=== PATIENT | male | born 1975 | race Caucasian/White ===

== ENCOUNTER → 2016-11-18 | Outpatient (CLI) | payer BC ==
--- NOTE | 2016-11-18 23:05 | MR ---
EXAMINATION TYPE: MR knee RT wo con DATE OF EXAM: 11/18/2016 9:23 PM COMPARISON: NONE HISTORY: RT KNEE PAIN TECHNIQUE: Multiplanar, multisequence imaging of the knee is performed without IV contrast. FINDINGS: There is a vertical defect through the posterior horn of the medial meniscus. There is a mild to mode rate knee joint effusion. The anterior and posterior cruciate ligaments are intact. The collateral li gaments are intact. There is no evidence for fracture. I see no bony destructive process. The patella is intact. IMPRESSION: There is a vertical tear of the posterior horn of the medial meniscus. No evidence of ligamentous tea r. Moderate knee joint effusion. No fracture seen.
== END | disposition home or self-care (01) ==
LOC: RADMRIMAIN 20:53
PROVIDERS: ATTEND Orthopaedic Surgery
DX: S83.241A Other tear of medial meniscus, current injury, right knee, initial encounter (principal)

== ENCOUNTER → 2017-01-12 | Outpatient (CLI) | payer BC ==
[2017-01-12 12:08] LABS: Basophils # (A) 0.1 k/uL (0-0.2); Basophils % (A) 2 %; CH 30.4; CHCM 34.6; Eosinophils # (A) 0.3 k/uL (0-0.7); Eosinophils % (A) 6 %; HGB 16.9 gm/dL (13.0-17.5); Luc # (Auto) 0.22; Luc % (Auto) 4; Lymphocytes % (A) 32 %; MCH 29.7 pg (25.0-35.0); MCHC 33.7 g/dL (31.0-37.0); MCV 88.2 fL (80.0-100.0); Mean Platelet Volume 7.4; Monocytes # (A) 0.3 k/uL (0-1.0); Monocytes % (A) 4 %; Neutrophils # (A) 3.3 k/uL (1.3-7.7); Neutrophils % (A) 53 %; RBC 5.68 m/uL (4.30-5.90); RDW 13.2 % (11.5-15.5); WBC 6.2 k/uL (3.8-10.6); WBC (Perox) 6.38
[2017-01-12 12:32] LABS: Potassium 4.6 mmol/L (3.5-5.1)
== END | disposition home or self-care (01) ==
LOC: LABPAT 11:52
PROVIDERS: ATTEND Orthopaedic Surgery
DX: Z01.818 Encounter for other preprocedural examination (principal); M23.91 Unspecified internal derangement of right knee
CPT/HCPCS: 80051; 85025

== ENCOUNTER 2017-01-19 06:46 | Day surgery (SDC) | payer BC ==
[2017-01-17 13:53] VITALS: BMI 26.4
--- NOTE | 2017-01-18 16:01 | HP ---
DATE OF ADMISSION: Jed Leija is a 41-year-old patient seen with progressive right knee pain. After having treatment options discussed, he elected to proceed with right knee arthroscopy. Consent was obtained. His past medical history is noncontributory. Past surgical history is left knee arthroscopy with ACL reconstruction. Daily medications: Ibuprofen as needed. ALLERGIES: None. SOCIAL HISTORY: Patient denies tobacco use. Physical evaluation of right knee: Range of motion 0 to 120 degrees, tenderness medial joint line. Positive medial Pamela's. Ligaments are stable. Hip rotation without pain. Distal neurovascular exam intact. Radiographs of the right knee revealed mild osteoarthritis. An MRI of the right knee revealed medial meniscal tear. IMPRESSION: Internal derangement of right knee with medial meniscal tear. PLAN: Right knee arthroscopy with partial meniscectomy and debridement.
[~2017-01-19 06:46] MED LIST: DEXAMETHASONE SOD PHOSPHATE 10 MG/ML 1 ML VIAL IV ONE; HYDROmorphone 1 MG/ML 1 ML SYRINGE IVP PRN; LACTATED RINGERS 1,000 ML IV SCH; LIDOCAINE 1% 20 ML VIAL (10MG/ML) FOR IV START INTRADERMA PRN; MIDAZOLAM 2 MG/2 ML VIAL IV PRN; ONDANSETRON 4 MG/2 ML VIAL IVP ONE; SCOPOLAMINE 1.5MG/72HR PATCH TRANSDERM ONE; ceFAZolin 2 GM in SODIUM CHLORIDE 0.9% 100 ML IVPB ONE
[2017-01-19] MEDS ORDERED: fentaNYL (PF) 50 MCG/ML 2 ML AMP ONE (07:27)
[2017-01-19] MEDS ORDERED: MIDAZOLAM 2 MG/2 ML VIAL ONE ×2 (07:27)
[2017-01-19] MEDS ORDERED: BUPIVACAIN-EPI 0.25%-1:200,000 30 ML VIAL INTRAARTIC ONE ×2 (07:43→08:09)
[2017-01-19] MEDS ORDERED: LACTATED RINGERS 1,000 ML IV ONE (07:53)
[2017-01-19 08:23] VITALS: TEMP 97.4
--- NOTE | 2017-01-19 08:29 | P.OP ---
Date of Procedure: 01/19/17 Preoperative Diagnosis: Internal derangement right knee Postoperative Diagnosis: 1. Tear medial and lateral meniscus right knee 2. Grade 1/2 chondromalacia patella right knee 3. Reactive synovitis medial and suprapatellar compartments right knee Procedure(s) Performed: 1. Arthroscopic partial medial and lateral meniscectomy right knee 2. Arthroscopic chondroplasty patella right knee 3. Arthroscopic partial synovectomy medial and suprapatellar compartments right knee Anesthesia: local, spinal Surgeon: Danilo Lozano Estimated Blood Loss (ml): 10 Pathology: none sent Condition: stable Disposition: PACU Indications for Procedure: 41-year-old patient seen with progressive right knee pain. After having treatment options discussed, he elected to proceed with right knee arthroscopy. Operative Findings: see description of procedure Description of Procedure: Patient was taken to the operative suite. Patient underwent a spinal anesthetic by the department of anesthesia. Patient was given preoperative antibiotics. The right lower extremity was placed in a well-padded arthroscopic leg finch. The right leg was prepped and draped in the normal sterile orthopedic fashion. A lateral parapatellar and suprapatellar incision was made. Trochars were inserted. Arthroscopy was initiated. Suprapatellar pouch revealed thick reactive synovitis. The patellofemoral joint appeared to articulate congruently. There was grade 1/2 chondromalacia with small osteochondral tears present. This involved the medial facet.. The scope was guided into the medial gutter. No loose bodies or plica were identified. The scope was then guided into the medial compartment. A medial parapatellar incision was made. Trocar inserted followed by probe. There was a complex tear involving the posterior horn of the medial meniscus which did extend into the midbody. There were grade 1 chondromalacia changes of the medial femoral condyle and tibial plateau but no osteochondral tears were present. There was some reactive synovitis anteriorly. There were no loose bodies. A partial medial meniscectomy was performed down to stable tissue. I performed a partial synovectomy. The residual meniscus was probed and found to be stable. Scope and probe were then guided into the intercondylar notch. Cruciates were identified, probed and found to be stable. The scope and probe were then guided into lateral compartment. Was a small superficial tear in the posterior medial corner of the lateral meniscus. The remainder of the lateral compartment was unremarkable. A partial lateral meniscectomy was performed on a stable tissue. The scope was in guided back into the suprapatellar compartment. I introduced a motorized shaver into the super patellar compartment. I debrided some piecemeal fragments of meniscus I encountered. I performed a chondroplasty patella gained down to stable osteochondral tissue. Partial synovectomy was performed. The shaver was removed. We took more look around the entire knee, no residual debris. Instruments were now removed from the joint. The joint was infiltrated with .25% Marcaine. Steri-Strips were applied to the portal sites. Sterile dressings were applied. The patient was placed into a JEFF hose. No tourniquet was utilized. The patient was awakened, transferred to a bed and taken to recovery stable satisfactory condition.
[2017-01-19] MEDS ORDERED: KETOROLAC 30 MG/ML 1 ML VIAL IVP STA (08:59)
[2017-01-19 09:35] VITALS: RESP 18
[2017-01-19 10:18] VITALS: BP 116/71; PULSE 61
== END 2017-01-19 11:18 | disposition home or self-care (01) ==
LOC: OR 06:46
PROVIDERS: ATTEND Orthopaedic Surgery
DX: S83.241A Other tear of medial meniscus, current injury, right knee, initial encounter (principal); S83.281A Other tear of lateral meniscus, current injury, right knee, initial encounter; X58.XXXA Exposure to other specified factors, initial encounter; M22.41 Chondromalacia patellae, right knee; M65.861 Other synovitis and tenosynovitis, right lower leg; M94.261 Chondromalacia, right knee; M23.91 Unspecified internal derangement of right knee; M17.11 Unilateral primary osteoarthritis, right knee; Z79.1 Long term (current) use of non-steroidal anti-inflammatories (NSAID)
CPT/HCPCS: 29880; J2250; J0690; J2405; J3010; J1885

== ENCOUNTER 2017-07-14 17:48 | Emergency (ER) | payer BC ==
[2017-07-14 17:53] VITALS: BP 142/85; PULSE 67; RESP 18; TEMP 97.1
[2017-07-14] MEDS ORDERED: DIPH,PERTUS(ACELL)TETVAC-LF 0.5 ML VIAL IM ONE (18:00)
--- NOTE | 2017-07-14 18:09 | ED ---
General Adult HPI - General Chief complaint: Wound/Laceration Stated complaint: Finger Laceration Time Seen by Provider: 07/14/17 17:56 Source: patient, RN notes reviewed Mode of arrival: ambulatory Limitations: no limitations - History of Present Illness Initial comments: 42 yo male presents to the ER with a chief complaint of left index finger laceration as well as left middle finger laceration by a elda borges today. Eyes any pain. He states his range of motion of the finger. He states that he just noticed the cut so he thought that he should be evaluated. Patient denies any other symptoms at this time.Patient denies any recent fever, chills, shortness of breath, chest pain, back pain, abdominal pain, nausea vomiting, numbness or tingling, dysuria or hematuria, constipation or diarrhea, headaches or visual changes, or any other current symptoms. - Related Data Previous Rx's Medication Instructions Recorded HYDROcodone/APAP 7.5-325MG [[place] 1 each PO Q6HR PRN #30 tab 01/19/17 7.5] Cephalexin [Keflex] 500 mg PO Q6HR #40 cap 07/14/17 Allergies Allergy/AdvReac Type Severity Reaction Status Date / Time No Known Allergies Allergy Verified 07/14/17 17:53 Review of Systems ROS Statement: Those systems with pertinent positive or pertinent negative responses have been documented in the HPI. ROS Other: All systems not noted in ROS Statement are negative. Past Medical History Past Medical History: No Reported History History of Any Multi-Drug Resistant Organisms: None Reported Past Surgical History: Orthopedic Surgery Additional Past Surgical History / Comment(s): BILAT KNEE SX Past Anesthesia/Blood Transfusion Reactions: No Reported Reaction Past Psychological History: No Psychological Hx Reported Smoking Status: Never smoker Past Alcohol Use History: None Reported Past Drug Use History: None Reported - Past Family History Mother Family Medical History: No Reported History General Exam - General Exam Comments Initial Comments: General: The patient is awake and alert, in no distress, and does not appear acutely ill. Neck: The neck is supple, there is no tenderness or JVD. Cardiovascular: There is a regular rate and rhythm. No murmur, rub or gallop is appreciated. Respiratory: Lungs are clear to auscultation, respirations are non-labored, breath sounds are equal. No wheezes, stridor, rales, or rhonchi. Musculoskeletal: Sensation intact with 2+ pulses of left upper x-ray. Fund motion of the left hand. Patient has 5 out of 5 muscle strength testing throughout. There is appear to be too similar laceration to the tip of the left index finger that does go through the nail as well as a 1 mL laceration to the distal aspect of the left middle finger. Neurological: CN II-XII intact, There are no obvious motor or sensory deficits. Coordination appears grossly intact. Speech is normal. Skin: Skin is warm and dry and no rashes or lesions are noted. Psychiatric: Normal mood and affect. Limitations: no limitations Course Vital Signs 07/14/17 17:50 Temperature 97.1 F L Pulse Rate 67 Respiratory 18 Rate Blood Pressure 142/85 O2 Sat by Pulse 100 Oximetry Procedures - Procedures Initial comment: The skin was anesthetized with 1% lidocaine. The laceration was then cleansed with Betadine and irrigated with normal saline. The wound was inspected, and there was no evidence of injury to deep structures. No foreign body was noted in the wound. A total of 2 skin sutures were placed utilizing 5-0 nylon to a 1 cm laceration to the distal aspect of the left middle finger. The skin was anesthetized with 1% lidocaine. The laceration was then cleansed with Betadine and irrigated with normal saline. The wound was inspected, and there was no evidence of injury to deep structures. No foreign body was noted in the wound. A total of 4 skin sutures were placed utilizing 5-0 nylon to 4 cm laceration to the distal aspect of the left index finger. - Orthopedic Splinting/Casting Injury #1 Side: left Upper Extremity Injury Location: finger Upper Extremity Immobilizer: aluminum form splint Medical Decision Making - Medical Decision Making 42-year-old male presents for left finger laceration. This does go to the nail and most likely is injury to the nailbed. We did discuss that we would remove the nail and fixes 30 mL now has a stone. He states that 6 everything except for the nail injury. At this time we will respect patient specialist. Patient did discuss care follow-up return parameters all his questions. He stated the Alonso is given plan. All questions have been answered. He will be discharged. Disposition Clinical Impression: Laceration of finger of left hand, Open fracture of phalanx of left index finger Disposition: HOME SELF-CARE Condition: Stable Instructions: Laceration (ED), Finger Fracture (ED) Additional Instructions: Please use medication as discussed. Please follow up with family doctor if symptoms have not improved over the next two days. Please return to the emergency room if your symptoms increase or worsen or for any other concerns. Prescriptions: Cephalexin [Keflex] 500 mg PO Q6HR #40 cap Referrals: Aditya Long DO [Doctor of Osteopathic Medicine] - 1-2 days Time of Disposition: 18:49
--- NOTE | 2017-07-14 18:21 | XR ---
EXAMINATION TYPE: XR finger LT DATE OF EXAM: 07/14/2017 COMPARISON: NONE HISTORY: Laceration TECHNIQUE: 3 views FINDINGS: There is slight deformity of the tuft of the distal phalanx of index finger suspicious for nondisplaced tuft fracture. There is no dislocation. There is no sign of a foreign body. IMPRESSION: Nondisplaced tuft fracture.
[2017-07-14] MEDS ORDERED: ceFAZolin 1,000 MG VIAL IM STA (18:24)
== END 2017-07-14 19:04 | disposition home or self-care (01) ==
LOC: EC 17:48
DX: S62.641B Nondisplaced fracture of proximal phalanx of left index finger, initial encounter for open fracture (principal); S61.213A Laceration without foreign body of left middle finger without damage to nail, initial encounter; Z23 Encounter for immunization; W29.3XXA Contact with powered garden and outdoor hand tools and machinery, initial encounter; Y93.H2 Activity, gardening and landscaping
CPT/HCPCS: 73140; 90715; 99283; 12002; 96372; 90471; J0690

== ENCOUNTER → 2022-06-23 | Outpatient (CLI) | payer BC ==
[2022-06-23 11:19] LABS: Basophils # (A) 0.06 X 10*3/uL (0.00-0.10); Basophils % (A) 0.9 %; Eosinophils # (A) 0.29 X 10*3/uL (0.04-0.35); Eosinophils % (A) 4.3 %; HCT 46.1 % (39.6-50.0); HGB 16.1 g/dL (13.0-17.0); Immature Grans, Automated 0.3 %; MCH 29.3 pg (27.0-32.0); MCHC 34.9 g/dL (32.0-37.0); MCV 83.8 fL (80.0-97.0); Mean Platelet Volume 10.1 fL (9.5-12.2); Monocytes # (A) 0.45 X 10*3/uL (0.20-1.00); Monocytes % (A) 6.7 %; NRBC Per 100 WBC 0 /100 WBCS (0.0-0.0); Neutrophils # (A) 3.85 X 10*3/uL (1.80-7.70); Neutrophils % (A) 57.8 %; Platelet Count 262 X 10*3/uL (140-440); RDW 12.4 % (11.5-14.5); WBC 6.67 X 10*3/uL (4.50-10.00)
[2022-06-23 11:21] LABS: African American GFR (CKD) 81.8 (60.0-200.0); Anion Gap 11.2 mmol/L (10.00-18.00); Blood Urea Nitrogen 19.6 mg/dL (9.0-27.0); Carbon Dioxide 24.8 mmol/L (20.0-27.5); Non-African American GFR(CKD) 70.6 (60.0-200.0); Potassium 4.1 mmol/L (3.5-5.5)
== END | disposition home or self-care (01) ==
LOC: LABPAT 07:42
PROVIDERS: ATTEND Orthopaedic Surgery
DX: Z01.812 Encounter for preprocedural laboratory examination (principal); M23.92 Unspecified internal derangement of left knee
CPT/HCPCS: 80051; 82565; 84520; 85025

== ENCOUNTER 2022-07-08 12:01 | Day surgery (SDC) | payer BC ==
[2022-07-07 08:05] VITALS: BMI 27.8
--- NOTE | 2022-07-08 05:32 | HP ---
HISTORY AND PHYSICAL DATE OF SURGERY: 07/08/2022 HISTORY OF PRESENT ILLNESS: Jed Leija is a 47-year-old gentleman, seen with persistent left knee pain. We discussed options for treatment. He elected to proceed with left knee arthroscopy. Consent was obtained. PAST MEDICAL HISTORY: Noncontributory. PAST SURGICAL HISTORY: Left knee arthroscopy with ACL reconstruction. DAILY MEDICATIONS: None. ALLERGIES: None reported. SOCIAL HISTORY: Denies tobacco use. PHYSICAL EVALUATION OF THE LEFT KNEE: His range of motion is negative 2/3 to 120. Mild effusion. Tenderness along the medial and lateral joint lines. Positive medial Pamela's. Positive lateral Pamela's. +2 to 3 Ron with no end point felt. Distal neurovascular exam is intact. RADIOLOGY: Radiographs of his knee revealed screws in proximal femur, distal tibia consistent with his history of previous ACL reconstruction. There were moderate osteoarthritic changes noted. IMPRESSION: 1. Internal derangement of the left knee with meniscal tear. 2. Left knee osteoarthritis. PLAN: Left knee arthroscopy with partial meniscectomy and debridement. MMODL / IJN: [id number] /
[~2022-07-08 12:01] MED LIST changes: -DEXAMETHASONE SOD PHOSPHATE 10 MG/ML 1 ML VIAL IV ONE; -HYDROmorphone 1 MG/ML 1 ML SYRINGE IVP PRN; -LIDOCAINE 1% 20 ML VIAL (10MG/ML) FOR IV START INTRADERMA PRN; -MIDAZOLAM 2 MG/2 ML VIAL IV PRN; -SCOPOLAMINE 1.5MG/72HR PATCH TRANSDERM ONE; -ceFAZolin 2 GM in SODIUM CHLORIDE 0.9% 100 ML IVPB ONE; +fentaNYL (PF) 50 MCG/ML 2 ML AMP IV PRN
[2022-07-08] MEDS ORDERED: ONDANSETRON 4 MG/2 ML VIAL ONE (12:35)
[2022-07-08] MEDS ORDERED: LIDOCAINE 1% (10MG/ML) FOR IV START INTRADERMA ONE (13:00)
[2022-07-08] MEDS ORDERED: KETOROLAC 15 MG/ML 1 ML VIAL ONE (13:35)
[2022-07-08] MEDS ORDERED: MIDAZOLAM 2 MG/2 ML VIAL ONE (13:35)
[2022-07-08] MEDS ORDERED: PROPOFOL 10 MG/ML 20 ML VIAL IV ONE (13:35)
[2022-07-08] MEDS ORDERED: fentaNYL (PF) 50 MCG/ML 2 ML AMP ONE (13:35)
[2022-07-08] MEDS ORDERED: HYDROmorphone (PF) 1 MG/ML ONE (13:35)
[2022-07-08] MEDS ORDERED: LACTATED RINGERS 1,000 ML IV ONE (14:21)
[2022-07-08] MEDS ORDERED: BUPIVACAINE (PF) 0.25% 30 ML VIAL SQ ONE (14:26)
[2022-07-08] MEDS: HYDROmorphone 0.5 MG/0.5 ML SYRINGE IVP PRN ×3 (14:39→14:57)
--- NOTE | 2022-07-08 14:45 | P.OP ---
Date of Procedure: 07/08/22 Preoperative Diagnosis: Internal derangement left knee Postoperative Diagnosis: 1. Tear medial and lateral meniscus left knee 2. Reactive synovitis medial, lateral and suprapatellar compartments left knee Procedure(s) Performed: 1. Arthroscopic partial medial and lateral meniscectomy left knee 2. Arthroscopic partial synovectomy medial, lateral and suprapatellar compartments left knee Anesthesia: local, spinal Surgeon: Danilo Lozano Estimated Blood Loss (ml): 8 Pathology: none sent Condition: stable Disposition: PACU Indications for Procedure: 47-year-old patient seen with progressive left knee pain. After having treatment options discussed, he elected to proceed with arthroscopy. Operative Findings: See description of procedure Description of Procedure: Patient was taken to the operative suite. Patient underwent a spinal anesthetic by the department of anesthesia. Patient was given preoperative antibiotics. The left lower extremity was placed in a well-padded arthroscopic leg finch. The left leg was prepped and draped in the normal sterile orthopedic fashion. A lateral parapatellar and suprapatellar incision was made. Trochars were inserted. Arthroscopy was initiated. Suprapatellar pouch revealed diffuse thick reactive synovitis. The patellofemoral joint appeared to articulate congruently. There was grade 1 chondromalacia patella with no osteochondral tears. The scope was guided into the medial gutter. No loose bodies or plica were identified. The scope was then guided into the medial compartment. A medial parapatellar incision was made. Trocar inserted followed by probe. There was a complex tear involving both the midbody medial meniscus and posterior horn medial meniscus. There were grade 2 chondromalacia changes of medial femoral condyle with some osteochondral flap tears present. There was some thick reactive synovitis anteriorly. I performed a partial medial meniscectomy getting down to stable meniscal tissue. I performed a chondroplasty of the medial femoral condyle getting down to stable osteochondral tissue. I performed a partial synovectomy decompressing the reactive synovitis. The residual meniscus was stable. The residual osteochondral surface appears stable. There was good decompression of the synovitis. Scope and probe were then guided into the intercondylar notch. Cruciates were identified, probed and found to be stable although there was some laxity of the ACL graft. Intraoperatively there was a +2 Duraloc but it appeared to have good endpoints. The scope and probe were then guided into lateral compartment. There was a tear along the posterior aspect of the lateral meniscus a tear of the root. There were grade 2 chondromalacia changes of lateral compartment without significant osteochondral tears being present. There was some reactive synovitis anteriorly. I performed a partial lateral meniscectomy getting down to stable meniscal tissue. I performed a partial synovectomy decompressing the reactive synovitis. The residual meniscus was probed and was found to be stable. There was good decompression of the synovitis. The scope was in guided back into the suprapatellar compartment. I introduced a motorized shaver into the super patellar compartment. I debrided some piecemeal fragments of meniscus that I encountered I performed a partial synovectomy. Shaver was removed. There appeared be good decompression of the synovitis. We took one more look around the entire knee, no residual debris. Instruments were now removed from the joint. The joint was infiltrated with .25% Marcaine. Steri-Strips were applied to the portal sites. Sterile dressings were applied. The patient was placed into a JEFF hose. No tourniquet was utilized. The patient was awakened, transferred to a bed and taken to recovery stable satisfactory condition.
[2022-07-08 14:46] VITALS: TEMP 96.9
[2022-07-08] MEDS ORDERED: KETOROLAC 15 MG/ML 1 ML VIAL IVP ONE (14:57)
[2022-07-08 15:40] VITALS: BP 132/74; PULSE 59; RESP 20
== END 2022-07-08 15:57 | disposition home or self-care (01) ==
LOC: OR 12:01
PROVIDERS: ATTEND Orthopaedic Surgery
DX: M23.304 Other meniscus derangements, unspecified medial meniscus, left knee (principal); M23.301 Other meniscus derangements, unspecified lateral meniscus, left knee; M17.12 Unilateral primary osteoarthritis, left knee; M65.862 Other synovitis and tenosynovitis, left lower leg; M22.42 Chondromalacia patellae, left knee; M25.562 Pain in left knee; M25.462 Effusion, left knee; K21.9 Gastro-esophageal reflux disease without esophagitis; Z98.890 Other specified postprocedural states
CPT/HCPCS: 29880; J2250; J0690; J2405; J3010; J1170 ×2; J1885; J2704